=== PATIENT | female | born 1965 | race Caucasian/White ===

== ENCOUNTER 2017-02-25 05:35 | Day surgery (SDC) | payer OTHER ==
[~2017-02-25] VITALS: Ht 160 cm; Wt 79.7 kg
[2017-02-25] VITALS (8 sets, daily range): BP systolic 116–142; BP diastolic 63–84; PULSE 57–76; RESP 10–19; Ht 160 cm; Wt 79.7 kg
--- NOTE | 2017-02-25 06:06 | RADRPT ---
PROCEDURE: XR Chest. CLINICAL INDICATION: Preoperative evaluation prior to general anesthesia TECHNIQUE: Portable single view of the chest COMPARISON: 09/08/2013 FINDINGS: Again seen is moderate cardiomegaly. No acute infiltrate, pleural effusion, or overt congestive hea rt failure is seen. No bony abnormality is seen. IMPRESSION: Cardiomegaly. No definite acute disease. RPTAT: [facility] Tereza Martínez Physician Date Time Electronically viewed and signed by Tereza Martínez Physician on 02/25/2017 06:05 HEAVENLY/
[2017-02-25] MEDS ORDERED: LEVO75TA5 PO (07:13)
[2017-02-25] MEDS ORDERED: BENA10TA48 PO (07:13)
[2017-02-25] MEDS ORDERED: MECL-77 PO (07:14)
[2017-02-25] MEDS ORDERED: SUCCINYLCHOLINE CHLORIDE 100 MG/5 ML SYG IV ONE (07:38)
[2017-02-25] MEDS ORDERED: LIDOCAINE 2% (SDV) 5 ML INJ ONE (07:38)
[2017-02-25] MEDS ORDERED: CEFAZOLIN 1 GM INJ ONE (07:38)
[2017-02-25] MEDS ORDERED: PROPOFOL 20 ML ONE (07:38)
[2017-02-25] MEDS ORDERED: ROCURONIUM 50 MG INJ ONE (07:38)
[2017-02-25] MEDS ORDERED: FENTAnyl 50 MCG/ML VIAL ONE (07:39)
--- NOTE | 2017-02-25 08:24 | RADRPT ---
Vent Rate: 65 bpm RR Interval: 0 msec ME Interval: 158 msec QRS Duration: 84 msec QT Interval: 436 msec QTC Interval: 453 msec P-R-T [place]: 35 - 17 - 41 degrees Normal sinus rhythm Normal ECG Electronically Signed By: Fara Kim [id number]
[2017-02-25] MEDS ORDERED: DIPHENHYDRAMINE 50 MG INJ IV PRN (08:30)
[2017-02-25] MEDS ORDERED: LABETALOL HCL 20MG INJ IV PRN (08:30)
[2017-02-25] MEDS ORDERED: METOCLOPRAMIDE 10 MG INJ IV PRN (08:30)
[2017-02-25] MEDS ORDERED: HYDROmorphONE (0.2 MG/ML) 10ML SYG IV PRN ×2 (08:30)
[2017-02-25] MEDS ORDERED: FENTAnyl 50 MCG/ML VIAL IV PRN ×2 (08:30)
[2017-02-25] MEDS ORDERED: MEPERIDINE 25 MG INJ IV PRN (08:30)
[2017-02-25] MEDS ORDERED: hydrALAzine 20 MG INJ IV PRN (08:30)
[2017-02-25] MEDS ORDERED: ONDANSETRON 4 MG INJ IV PRN (08:30)
[2017-02-25] MEDS ORDERED: SUGAMMADEX SODIUM 200 MG/2 ML VIAL IV ONE (08:33)
--- NOTE | 2017-02-25 08:42 | HPN ---
Date/Time of Note Date/Time of Note DATE: 02/25/17 TIME: 08:42 Interval H&P Admission Note Pt. seen H&P reviewed: No system changes VU ZAPATA MD Feb 25, 2017 08:42
--- NOTE | 2017-02-25 08:47 | PD.PPDC ---
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
--- NOTE | 2017-02-25 09:28 | OPR ---
Date/Time of Note Date/Time of Note DATE: 02/25/17 TIME: 09:24 Operative Report Preoperative Diagnosis postmenopausal bleeding Postoperative Diagnosis endocervical polyp Operation/Procedure Performed [facility] endocervical polypectomy endometrial curettage Surgeon: VU ZAPATA MD Anesthesia Type: general Estimated Blood Loss: minimal Transfusion Required: no Specimens endometrial curettings with endocervical polyp Grafts/Implants: none Complications: no VU ZAPATA MD Feb 25, 2017 09:28
--- NOTE | 2017-02-27 11:44 | OPR ---
DATE OF OPERATION: 02/25/2017 SURGEON: Opal Herbert MD TYRE FINISHER AND EXAMINER: Duarte from [place]. ANESTHESIOLOGIST: Aaron Rene MD PREOPERATIVE DIAGNOSES: 1. Excessive vaginal bleeding. 2. Postmenopausal bleeding. POSTOPERATIVE DIAGNOSIS: Endocervical polyp. OPERATION PERFORMED: 1. Hysteroscopy. 2. Endocervical polypectomy. 3. Uterine cavity curettage. ANESTHESIA: General anesthesia. ESTIMATED BLOOD LOSS: Negligible. OPERATIVE PROCEDURE: Under appropriate induction of general anesthesia, the patient was placed in dorsal lithotomy position. Perineal area and vagina were was prepped and draped in usual aseptic fashion. Bimanual examination, the uterus felt to be slightly increased in size, firm in consistency. There was no palpable adnexal pathology. A weighted speculum introduced, and the cervix identified which was grasped with a single-tooth tenaculum and neck which was cleared. Cavity was sounded, which was 9 cm, large for a postmenopausal woman. It was also dilated gradually up to 5 and hysteroscope the which was prepared with the normal saline inflow, outflow and checked all the pressures and primed the instrument. The hysteroscope was introduced into the cervix gradually and noticed that there is a growth in the endocervical canal, and then insertion was further done and revealed the fundus and 2 ostium. The endometrial tissue is slightly increased for a postmenopausal woman, so the soft blade was then introduced to side channel and the procedure to be begun. The endocervical polyp was removed from the base with a few strokes and further curetting was done and he entire cavity was curetted in all directions, obtaining a small amount of tissue which was in he retriever. The procedure was satisfactory and the instruments were removed from the operative field, after another visualization, which was completed. All instruments were removed from the operative field, including the tenaculum. Fluid deficit was only 200 mL. Patient was sent to recovery room in stable condition. Dictated By: Opal Herbert MD /alberto/kelsey /Document#: [id number]
== END 2017-02-25 10:25 | disposition home or self-care (01) ==
LOC: SDS 05:35
PROVIDERS: ATTEND Obstetrics & Gynecology
DX: N95.0 Postmenopausal bleeding (principal); I10 Essential (primary) hypertension; E66.9 Obesity, unspecified; Z68.31 Body mass index [BMI] 31.0-31.9, adult
CPT/HCPCS: 58558; 71010; 88305; 93005; J0690; J3010; Z7512; Z7610; J7999